=== PATIENT | male | born 1960 | race Caucasian/White ===

== ENCOUNTER 2019-07-05 06:40 | Observation (INO) | payer MEDICARE ==
[~2019-07-05] VITALS: Ht 193 cm; Wt 97.5 kg
[2019-07-05] VITALS (13 sets, daily range): BP systolic 114–1148; BP diastolic 69–83
--- NOTE | ~2019-07-05 | P ---
[facility] [place] [address] PROCEDURE REPORT Name: LILLY MUNOZ Room #: 206-P [facility]..#: [id number] Admission: 07/05/19 ������������������ Attend Phys: Ramy Dunn MD Discharge: ������������������ Date of : 60 Report #: [id number] THIS REPORT FOR: //name// CC: Alan Dunn DATE OF SERVICE: 07/05/2019 PREOPERATIVE DIAGNOSIS: Atrial fibrillation. POSTOPERATIVE DIAGNOSIS: Atrial fibrillation. PROCEDURES PERFORMED: 1. Atrial fibrillation ablation, CPT code 93157. 2. 3D mapping EP, CPT code 68807. 3. Intracardiac echo, CPT code 14285. ANESTHESIA: The patient underwent general anesthesia with no anesthesia related complications. DESCRIPTION OF PROCEDURE: The patient underwent informed consent. We discussed the details of the procedure including the risks, which include but not limited to bleeding, vascular damage, cardiac perforation as well as stroke or NV. He understood these risks and is willing to proceed. The patient was brought to EP laboratory in fasting and sedated state, prepped and draped in sterile fashion. I injected lidocaine at the right groin and obtained access to the right femoral vein x 3. In the right femoral vein, I placed an 8-Chadian and 7-Chadian short sheath. Under fluoroscopy, I placed a decapolar catheter easily in the coronary sinus and an ice catheter into the right atrium. At baseline, the patient was in sinus rhythm with sinus cycle length 1255 milliseconds, MN interval 180 milliseconds, QRS duration 96 milliseconds, QT interval 457 milliseconds. Using intracardiac ultrasound, there was evidence of 2 left and 2 right pulmonary veins. He did have somewhat of a small area to perform a transseptal. The decapolar catheter was placed easily into the coronary sinus and this was used for left atrial pacing and recording. Next, the patient was systemically heparinized and a transseptal was performed using an SL1 sheath and [place] needle. I got the Guidewire to advance into the left superior pulmonary vein and then I exchanged for the cryo sheath and advanced this into the left atrium with ease. Next, I used a [employer] [place] Lasso catheter and created a detailed 3D voltage map of the left atrium, which was merged with the cardiac CT scan and the intracardiac ultrasound images. Next, the cryoballoon was placed in the left atrium. I started by isolating the left superior pulmonary vein. I performed a 4-minute freeze followed by a 300-second freeze and the vein isolated during the second freeze within 120 seconds. I then turned my attention to the left inferior pulmonary [address] [address] PROCEDURE REPORT Name: LILLY MUNOZ Room #: [facility] M.R.#: [id number] Admission: 07/05/19 ������������������ Attend Phys: Ramy Dunn MD Discharge: ������������������ Date of : 60 Report #: [id number] vein. Initial freeze was 4 minutes and did not result in isolation. Second freeze was performed, but I came off after 50 seconds as attempts were too cold; during the second freeze, the vein isolated within 10 seconds. I then performed a third freeze that was 120 seconds of duration. I turned my attention to the right superior pulmonary vein. During freezing of the right-sided veins, phrenic nerve pacing was performed using my decapolar catheter placed in the SVC. First freeze was of 90 seconds duration, which resulted in isolation within 30 seconds and I came off early as the attempts were to cold. I then performed a less selective freeze and this was of 3 minutes duration. I then turned my attention to the right inferior pulmonary vein and I performed a 4-minute freeze. It seemed that it likely had isolated during this initial freeze. I performed an additional freeze of 3 minutes duration. Next, I performed some atrial pacing and could not induce any arrhythmias. I then removed the cryoablation balloon from the left atrium and again placed my Lasso catheter into the left atrium and created a detailed 3D voltage map which showed that we had created a wide circumferential ablation of the pulmonary veins. As such, the procedure was concluded. The patient received systemic protamine and once ACT was within acceptable range, catheters and sheaths were pulled and hemostasis obtained. The patient awoke neurologically and hemodynamically intact. No complications and no significant bleeding. CONCLUSIONS: 1. Successful AFib ablation with isolation wide circumferential ablation of the pulmonary veins. ��������������������������������������������� ���������������������������������������� By: ��������������������������������������������� 1615 0236 Ramy Dunn MD /nt
[2019-07-05] MEDS ORDERED: TAMBOCOR 100 M100 M1 PO (07:43)
[2019-07-05] MEDS ORDERED: OXYCODONE HCL20 M1 PO (07:43)
[2019-07-05] MEDS ORDERED: SYNTHROID50 MCG PO (07:44)
[2019-07-05] MEDS ORDERED: ASPIRIN325 PO (07:44)
[2019-07-05 07:45] LABS: ABSOLUTE NEUTROPHILS 3.9 thou/uL (1.4-8.2); EOSINOPHILS 2.1 % (0.0-3.0); HEMOGLOBIN 14.3 gm/dL (14.0-18.0); LYMPHOCYTES 27.2 % (24.0-44.0); MCH 28.7 pg (26.0-34.0); MCV 84.3 fL (80.0-100.0); PLATELET COUNT 277 thou/uL (150-400); POLYS 58.7 % (36.0-66.0); RBC 4.99 mil/uL (4.50-6.00); WBC 6.7 thou/uL (4.0-11.0)
[2019-07-05] MEDS ORDERED: PRADAXA150 MG PO (07:45)
[2019-07-05] MEDS ORDERED: ZOLPIDEM TARTRA10 MG PO (07:46)
[2019-07-05 07:53] LABS: CALCIUM 9.1 mg/dL (8.5-10.1); POTASSIUM 4.3 mmol/L (3.5-5.1)
[2019-07-05 07:58] LABS: APTT 28.8 Seconds (24.5-32.8); PROTIME 9.8 Seconds (9.3-11.4)
[2019-07-05 08:00] LABS: ALBUMIN 3.8 g/dL (3.4-5.0); TOTAL BILIRUBIN 0.4 mg/dL (<0.1-1.0); TOTAL PROTEIN 7.5 g/dL (6.4-8.2)
--- NOTE | 2019-07-05 12:57 | NUR ---
REPORT CALLED TO DEANDRE RUBY AT 1340. PT TAKEN TO ROOM AT THIS TIME AND TRANSFERRED TO BED MANTAINING BEDREST PRECAUTIONS.
--- NOTE | 2019-07-05 15:45 | NUR ---
PT ADMITED FROM OR DIRECTOR. ADMISSION HX AND ASSESSMENT COMPLETED. PT ALERT AND ORIENTED. RIGHT GROIN INCISION C/D/I. ON BED REST FOR 6 HOURS. POST OP INSTRUCTIONS GIVEN TO PT. PT VERBERLIZED UNDERSTANDING. PT ORIENTED TO THE ROOM AND THE CALL LIGHT SYSTEM. WILL CONTINUE TO MONITOR.
--- NOTE | 2019-07-05 17:26 | EKG ---
[address] [address] ELECTROCARDIOGRAM REPORT Name: LILLY MUNOZ Room #: 206-P [facility]..#: [id number] ������������������ Admission: 07/05/19 ������������������ Attend Phys: Ramy Dunn MD Discharge: ������������������ Date of : 60 Report #: [id number] ����������������������������������������������������������������� [id number] THIS REPORT FOR: //name// [facility] Test Date: 2019-07-05 Test Time: 07:18:44 Pat Name: LILLY MUNOZ Department: Room: 206 Gender: M Head Of Science: Cindy HUYNH : 1960 Requested By: Ramy Dunn Order Number: [id number] MD: Edy Godoy Measurements Intervals [place] Rate: 54 P: 22 HI: 173 QRS: 11 QRSD: 106 T: 19 QT: 415 QTc: 394 Interpretive Statements Sinus bradycardia Otherwise normal tracing No previous ECG available for comparison Electronically Signed On 07-05-2019 17:26:47 CDT by Edy Godoy [email or web address] ��������������������������������������������� <ELECTRONICALLY SIGNED> ���������������������������������������� By: Edy Godoy MD, [facility] ��������������������������������������������� 07/05/19 1726 0718 07 Edy Godoy MD, FACC /EPI
[2019-07-06 00:30] VITALS: BP 126/66
[2019-07-06 00:59] VITALS: BP 125/80
[2019-07-06 04:45] VITALS: BP 136/67
[2019-07-06 05:14] LABS: HEMATOCRIT 40.8 % (42.0-52.0); HEMOGLOBIN 13.7 gm/dL (14.0-18.0); MCH 28.5 pg (26.0-34.0); MCHC 33.6 g/dL (28.0-37.0); MCV 84.6 fL (80.0-100.0); RBC 4.82 mil/uL (4.50-6.00); RDW 13.6 % (10.5-14.5); WBC 14.5 thou/uL (4.0-11.0)
[2019-07-06 05:21] LABS: CALCIUM 8.8 mg/dL (8.5-10.1); POTASSIUM 4.3 mmol/L (3.5-5.1)
[2019-07-06 05:45] VITALS: BP 125/80
--- NOTE | 2019-07-06 05:52 | NUR ---
PT A&O X4 ABLE TO MAKE NEEDS KNOWN. UP AD RONDA. PT HAD A CATH DURING THE PREVIOUS SHIFT ACCESS VIA R GROIN SITE INTACT NO BLEEDING. PT DENIES HAVING ANY PAIN SO FAR THIS SHIFT. PT VOIDING URINE OK POST CATHER DC DURING PREVIOUS SHIFT.NSR.
[2019-07-06 07:47] VITALS: BP 107/63
[2019-07-06 09:13] VITALS: BP 107/63
--- NOTE | 2019-07-06 11:31 | NUR ---
ASSESSMENT CHARTED. PT ALERT AND ORIENTED. VSS. DENIED HAVING PAIN OR DISCOMFORT. RIGHT GROIN INCISION C/D/I. NO HEMATOMA NOTED. ORDERS GIVEN TO DISCHARGE PT TO HOME. DISCHARGE INSTRUCTIONS GIVEN TO PT. PT VERBERLISED UNDERSTANDING.
--- NOTE | 2019-07-06 12:00 | EKG ---
[address] [address] ELECTROCARDIOGRAM REPORT Name: LILLY MUNOZ Room #: 206-[facility]..#: [id number] ������������������ Admission: 07/05/19 ������������������ Attend Phys: Ramy Dunn MD Discharge: 07/06/19 ������������������ Date of : 60 Report #: [id number] ����������������������������������������������������������������� [id number] THIS REPORT FOR: //name// [facility] Test Date: 2019-07-06 Test Time: 07:21:43 Pat Name: LILLY MUNOZ Department: Room: 206 Gender: M Bean Snipper: LAKISHA : 1960 Requested By: Ninoska Toussaint Order Number: [id number] MD: Edy Godoy Measurements Intervals [place] Rate: 70 P: 9 MN: 160 QRS: 3 QRSD: 108 T: 6 QT: 392 QTc: 423 Interpretive Statements Sinus rhythm Normal tracing Compared to ECG 07/05/2019 07:18:44 Sinus bradycardia no longer present Electronically Signed On 07-06-2019 11:59:44 CDT by Edy Godoy [email or web address] ��������������������������������������������� <ELECTRONICALLY SIGNED> ���������������������������������������� By: Edy Godoy MD, [facility] ��������������������������������������������� 07/06/19 1159 0 0 Edy Godoy MD, [facility] /EPI
== END 2019-07-06 11:38 | disposition home or self-care (01) ==
LOC: CATH 06:40 → 2N 12:46 → CATH 13:27 → 2N 07-06 11:38
PROVIDERS: Nurse Practitioner; ADMIT Internal Medicine Cardiovascular Disease
DX: I48.0 Paroxysmal atrial fibrillation (principal); E78.5 Hyperlipidemia, unspecified; Z88.6 Allergy status to analgesic agent; Z79.82 Long term (current) use of aspirin; Z79.899 Other long term (current) drug therapy
CPT/HCPCS: 62110; 62900; 65020; 65040; 70005

== ENCOUNTER → 2020-01-08 | Outpatient (CLI) | payer MEDICARE ==
[~2020-01-08] MED LIST: ASPIRIN325 PO; OXYCODONE HCL20 M1 PO; PRADAXA150 MG PO; SYNTHROID50 MCG PO; TAMBOCOR 100 M100 M1 PO; ZOLPIDEM TARTRA10 MG PO
== END ==
LOC: SJCVC 13:15
DX: I48.91 Unspecified atrial fibrillation (principal); I49.3 Ventricular premature depolarization; E78.5 Hyperlipidemia, unspecified; Z79.899 Other long term (current) drug therapy